=== PATIENT | male | born 1985 | race Caucasian/White ===

== ENCOUNTER 2019-12-26 00:51 | Emergency (ER) | payer BC ==
[2019-12-26] MEDS ORDERED: Ketorolac 10 MG Tab PO ONE (00:52)
[2019-12-26] MEDS ORDERED: Cyclobenzaprine 10 MG Tab PO ONE (00:52)
[2019-12-26] MEDS ORDERED: Ketorolac 60 MG/2 ML SDV IM ONE (01:14)
[2019-12-26] MEDS ORDERED: Alum Hydrox/Mag Hydrox/Simeth 30 ML, Lidocaine 2% 15 ML PO ONE ×2 (01:15)
--- NOTE | 2019-12-26 01:21 | EDM.PDOC ---
ED HPI GENERAL MEDICAL PROBLEM - General Chief Complaint: General Stated Complaint: neck pain Time Seen by Provider: 12/26/19 01:10 Source of Information: Reports: Patient History Limitations: Reports: No Limitations - History of Present Illness INITIAL COMMENTS - FREE TEXT/NARRATIVE: Patient to the emergency department complaining of ate some spicy greasy type foods tonight, went to bed around 11 PM and woke up with coughing and also advised with the frequent coughing developed pain in the left side of his neck that radiated into the posterior part of his head. Denies any real headache. Denies any change in vision denies any ear, nose, throat symptoms. The patient denies any chest pain or shortness of breath denies any palpitations irregular heartbeat denies any calf pain redness or swelling. He denies any abdominal pain other than he has this epigastric heartburn feeling from the food that he ate earlier. He has had nausea no vomiting diarrhea no constipation no fever no chills Onset: Today Duration: Hour(s): (3 hours) Location: Reports: Other (left side f neck and back of head area) Quality: Reports: Ache Severity: Moderate Improves with: Reports: None Worsens with: Reports: None Associated Symptoms: Reports: Nausea/Vomiting (no vomiting) Treatments DEAN OF EDUCATION: Reports: Other (see below) (tums and milk) Left Neck Pain Score (Numeric/FACES): 10 - Related Data Allergies Allergy/AdvReac Type Severity Reaction Status Date / Time No Known Allergies Allergy Verified 12/26/19 00:56 Home Meds: Home Meds Esomeprazole [NexIUM] 40 mg PO DAILY 12/26/19 [History] Ketorolac [Toradol] 10 mg PO TID PRN 5 Days #15 tab 12/26/19 [Rx] Losartan [Cozaar] 50 mg PO DAILY 12/26/19 [History] hydroCHLOROthiazide [Hydrochlorothiazide] 25 mg PO DAILY 12/26/19 [History] methocarbamoL [Robaxin] 500 mg PO TID 10 Days #30 tab 12/26/19 [Rx] Past Medical History Cardiovascular History: Reports: Hypertension Gastrointestinal History: Reports: GERD - Past Surgical History HEENT Surgical History: Reports: Other (See Below) Other HEENT Surgeries/Procedures: wisdom teeth removal Social & Family History - Family History Family Medical History: Noncontributory - Tobacco Use Smoking Status *Q: Never Smoker - Recreational Drug Use Recreational Drug Use: No - Living Situation & Occupation Living situation: Reports: with Family ED ROS GENERAL - Review of Systems Review Of Systems: See Below Constitutional: Reports: No Symptoms. Denies: Fever, Chills HEENT: Reports: No Symptoms. Denies: Ear Pain, Nose Pain, Throat Pain Respiratory: Reports: No Symptoms. Denies: Shortness of Breath Cardiovascular: Reports: No Symptoms. Denies: Chest Pain, Palpitations GI/Abdominal: Reports: Abdominal Pain (Epigastric), Nausea. Denies: Diarrhea, Melena, Vomiting Musculoskeletal: Reports: No Symptoms, Neck Pain. Denies: Back Pain Skin: Reports: No Symptoms. Denies: Rash, Erythema Neurological: Reports: No Symptoms. Denies: Confusion, Dizziness, Headache, Numbness, Syncope, Tingling, Trouble Speaking, Difficulty Walking, Weakness, Change in Speech, Gait Disturbance Psychiatric: Reports: No Symptoms ED EXAM, GENERAL - Physical Exam Exam: See Below Exam Limited By: No Limitations General Appearance: Alert, WD/WN, No Apparent Distress Ears: Normal External Exam, Normal Canal, Hearing Grossly Normal, Normal TMs Ear Exam: Bilateral Ear: Auricle Normal, Canal Normal, TM normal Nose: Normal Inspection, Normal Mucosa Throat/Mouth: Normal Inspection, Normal Lips, Normal Teeth, Normal Oropharynx, Normal Voice, No Airway Compromise Head: Atraumatic, Normocephalic Neck: Normal Inspection, Supple, Full Range of Motion, Tender Lateral (Low site with palpation). No: Limited Range of Motion, Lymphadenopathy (L), Lymphadenopathy (R) Respiratory/Chest: No Respiratory Distress, Lungs Clear, Normal Breath Sounds, No Accessory Muscle Use, Chest Non-Tender Cardiovascular: Normal Peripheral Pulses, Regular Rate, Rhythm, No Murmur Peripheral Pulses: 2+: Radial (L), Radial (R) GI/Abdominal: Soft, Non-Tender (No epigastric tenderness with palpation), No Distention Back Exam: Normal Inspection, Full Range of Motion Extremities: Normal Inspection, Normal Range of Motion, Non-Tender, Normal Capillary Refill Neurological: Alert, Oriented, Normal Cognition, Normal Gait, No Motor/Sensory Deficits Psychiatric: Normal Affect, Normal Mood Skin Exam: Warm, Dry, Intact, Normal Color Course - Vital Signs Text/Narrative:: The patient was evaluated in the emergency department, the patient was given a GI cocktail which seemed to help his gastric symptoms as well as he was given Toradol 60 mg IM which has also seemed to help his cervical spine pain/spasm. The patient will be discharged with Flexeril 10 mg 3 times daily for today and a prescription for Robaxin 500 mg 3 times daily will be sent to the pharmacy to be picked up on Friday. The patient will also be given Toradol 10 mg 3 times daily as needed. The patient is advised to use his omeprazole as prescribed and avoid any spicy or greasy foods. He is also advised to stop eating late at night. The patient is advised to return to the emergency department sooner if worse or any problems. He is also advised to establish a patient provider relationship with 1 of the local providers as he has moved to [place] last week. Last Recorded V/S: Last Vital Signs Temp 36.2 C 12/26/19 00:53 Pulse 65 12/26/19 00:53 Resp 18 12/26/19 00:53 BP 159/98 H 12/26/19 00:53 Pulse Ox 97 12/26/19 00:53 - Orders/Labs/Meds Meds: Medications Discontinued Medications Generic Name Dose Route Start Last Admin Trade Name Freq PRN Reason Stop Dose Admin Al Hydroxide/Mg Hydroxide 30 0 ml 12/26/19 01:15 12/26/19 01:19 ml/ Lidocaine HCl 15 ml PO 12/26/19 01:16 45 ml ONETIME ONE Administration Cyclobenzaprine HCl 1 packet 12/26/19 01:40 Take Home: Cyclobenzaprine 10 Mg, 4 Tab Pack PO 12/26/19 01:41 ONETIME ONE Ketorolac Tromethamine 60 mg 12/26/19 01:14 12/26/19 01:21 Toradol IM 12/26/19 01:15 60 mg ONETIME ONE Administration Ketorolac Tromethamine 1 packet 12/26/19 01:39 Take Home: Ketorolac 10 Mg, 4 Tab Pack PO 12/26/19 01:40 ONETIME ONE Departure - Departure Time of Disposition: 01:39 Disposition: Home, Self-Care 01 Condition: Good Clinical Impression: GERD (gastroesophageal reflux disease), Neck muscle strain - Discharge Information *PRESCRIPTION DRUG MONITORING PROGRAM REVIEWED*: Not Applicable *COPY OF PRESCRIPTION DRUG MONITORING REPORT IN PATIENT HARMEET: Not Applicable Prescriptions: Ketorolac [Toradol] 10 mg PO TID PRN 5 Days #15 tab PRN Reason: Pain (Moderate 4-6) methocarbamoL [Robaxin] 500 mg PO TID 10 Days #30 tab Instructions: Cervical Sprain, [id number], Gastroesophageal Reflux Disease, Adult, [id number] Referrals: PCP,None [Primary Care Provider] - Forms: ED Department Discharge Additional Instructions: Rest warm moist heat off and on no spicy or greasy foods return to the ED sooner if worse or problems Sepsis Event Note - Evaluation Sepsis Screening Result: No Definite Risk - Focused Exam Vital Signs: Vital Signs Temp Pulse Resp BP Pulse Ox 12/26/19 00:53 36.2 C 65 18 159/98 H 97 Date Exam was Performed: 12/26/19 Time Exam was Performed: 01:44 - Problem List & Annotations (1) GERD (gastroesophageal reflux disease) SNOMED Code(s): 363926954 Code(s): K21.9 - GASTRO-ESOPHAGEAL REFLUX DISEASE WITHOUT ESOPHAGITIS Status: Acute Priority: Medium Current Visit: Yes (2) Neck muscle strain SNOMED Code(s): 548669235 Code(s): S16.1XXA - STRAIN OF MUSCLE, FASCIA AND TENDON AT NECK LEVEL, INIT Status: Acute Priority: Medium Current Visit: Yes Qualifiers: Encounter type: initial encounter Qualified Code(s): S16.1XXA - Strain of muscle, fascia and tendon at neck level, initial encounter - Problem List Review Problem List Initiated/Reviewed/Updated: Yes - Assessment/Plan Plan: The patient's past medical history, surgical history, past family medical history social history is been reviewed see the nursing notes for details Treatment plan as above
[2019-12-26] MEDS ORDERED: Take Home: Ketorolac 10 MG Tab, 4 Tab Pack PO ONE (01:39)
[2019-12-26] MEDS ORDERED: Take Home: Cyclobenzaprine 10 MG Tab, 4 Tab Pack PO ONE (01:40)
== END 2019-12-26 01:51 | disposition home or self-care (01) ==
LOC: CC.ED 00:51
DX: S16.1XXA Strain of muscle, fascia and tendon at neck level, initial encounter (principal); K21.9 Gastro-esophageal reflux disease without esophagitis; X58.XXXA Exposure to other specified factors, initial encounter
CPT/HCPCS: 96372; 99283; A9270-GY; J1885

== ENCOUNTER 2021-06-30 13:45 | Emergency (ER) | payer BC ==
--- NOTE | 2021-06-30 14:22 | EDM.PDOC ---
ED HPI GENERAL MEDICAL PROBLEM - General Chief Complaint: Cardiovascular Problem Stated Complaint: "my blood pressure is high" Time Seen by Provider: 06/30/21 14:15 Source of Information: Reports: Patient History Limitations: Reports: No Limitations - History of Present Illness INITIAL COMMENTS - FREE TEXT/NARRATIVE: Ruperto is a 35 year old male who presents to ER with complaints of feeling "off" and noted high blood pressure at home. Had syncopal episode at work yesterday. "we were messing around with each other, I put my hands up in the air and then next thing I knew I woke up on the floor". Was told that passed out, was lowered to the floor and was snoring. When awoke, got up and felt fine. Went home from work and had no concerns last night. Horner off when getting up this am, checked his blood pressure and was high at 170s/110s. Denies chest pain or shortness of breath at present. Does admit that gets winded easily with exertion. No diaphoresis. No nausea or vomiting. Does get edema in his legs at times, relates to having for years due to ankle injuries sustained when young while playing soccer. Did take his Losartan this am, hasn't noted any improve ment. Onset: Gradual Duration: Hour(s):, Waxing/Waning Location: Reports: Head, Chest Associated Symptoms: Reports: Other (dyspnea with exertion). Denies: Confusion, Chest Pain, Cough, Fever/Chills, Headaches, Loss of Appetite, Nausea/Vomiting, Shortness of Breath - Related Data Allergies Allergy/AdvReac Type Severity Reaction Status Date / Time No Known Allergies Allergy Verified 06/30/21 13:46 Home Meds: Home Meds Esomeprazole [NexIUM] 40 mg PO DAILY PRN 12/26/19 [History] Losartan [Cozaar] 50 mg PO BID 12/26/19 [History] Albuterol Sulfate [Albuterol Sulfate Hfa] 2 puff ASDIRECTED PRN 06/30/21 [History] Pantoprazole Sodium [Protonix] 40 mg PO DAILY 06/30/21 [History] Past Medical History Cardiovascular History: Reports: Hypertension Gastrointestinal History: Reports: GERD - Past Surgical History HEENT Surgical History: Reports: Other (See Below) Other HEENT Surgeries/Procedures: wisdom teeth removal Social & Family History - Family History Family Medical History: No Pertinent Family History - Tobacco Use Tobacco Use Status *Q: Unknown Ever Used Tobacco - Living Situation & Occupation Living situation: Reports: with Family ED ROS GENERAL - Review of Systems Review Of Systems: See Below Constitutional: Denies: Fever, Chills, Malaise, Weakness, Fatigue, Decreased Appetite HEENT: Denies: Ear Pain, Rhinitis, Sinus Problem, Throat Pain, Vertigo, Vision Change Respiratory: Denies: Shortness of Breath, Cough Cardiovascular: Reports: Dyspnea on Exertion, Edema. Denies: Chest Pain, Lightheadedness Endocrine: Denies: Fatigue GI/Abdominal: Denies: Abdominal Pain, Nausea, Vomiting : Reports: No Symptoms Musculoskeletal: Reports: No Symptoms Skin: Reports: No Symptoms Neurological: Denies: Dizziness, Headache ED EXAM, GENERAL - Physical Exam Exam: See Below Exam Limited By: No Limitations General Appearance: Alert, WD/WN, No Apparent Distress Ears: Normal External Exam, Normal TMs Nose: Normal Inspection, Normal Mucosa, No Blood Throat/Mouth: Normal Inspection, Normal Oropharynx Head: Normocephalic Neck: Normal Inspection, Supple, Non-Tender Respiratory/Chest: No Respiratory Distress, Lungs Clear, Normal Breath Sounds Cardiovascular: Regular Rate, Rhythm, No Edema GI/Abdominal: Normal Bowel Sounds, Soft, Non-Tender Extremities: Normal Inspection, No Pedal Edema Neurological: Alert, Oriented Skin Exam: Warm, Dry Course - Vital Signs Last Recorded V/S: Last Vital Signs Temp 98.2 F 06/30/21 13:49 Pulse 78 06/30/21 15:50 Resp 16 06/30/21 15:50 BP 164/110 H 06/30/21 15:50 Pulse Ox 98 06/30/21 15:50 - Orders/Labs/Meds Orders: Active Orders 24 hr Category Date Time Status Chest 2V [CR] Stat Exams 06/30/21 14:01 Taken Head wo Cont [CT] Stat Exams 06/30/21 14:01 Taken cloNIDine [Catapres] Med 06/30/21 15:00 Active 0.1 mg PO DAILY hydroCHLOROthiazide Med 06/30/21 16:12 Once 25 mg PO ONETIME ONE Medication Orders Clonidine HCl (Clonidine 0.1 Mg Tab) 0.1 mg PO DAILY JOSE Last Admin: 06/30/21 15:05 Dose: 0.1 mg Documented by: HIRAM Labs: Laboratory Tests 06/30/21 06/30/21 06/30/21 Range/Units 14:30 14:33 14:33 WBC 7.6 (4.0-11.0) 10^3/uL RBC 5.44 (4.50-6.00) x10^6/uL Hgb 16.2 (14.0-18.0) g/dL Hct 45.7 (42.0-52.0) % MCV 84.0 (83.0-97.0) fL MCH 29.8 (27.0-32.0) pg MCHC 35.4 (32.0-36.0) g/dL RDW Coeff of Roxy 12.1 (11.0-15.0) % Plt Count 231 (150-400) 10^3/uL Immature Gran % (Auto) 0.3 (0.0-4.9) % Neut % (Auto) 53.9 (41-71) % Lymph % (Auto) 35.7 (24-44) % [place] % (Auto) 7.8 (0-10) % Eos % (Auto) 1.8 (0-6) % Baso % (Auto) 0.5 (0-1) % Neut # (Auto) 4.08 (1.80-8.00) x10^3/uL Lymph # (Auto) 2.70 (0.60-5.00) 10^3/uL [place] # (Auto) 0.59 (0.00-1.50) 10^3/uL Eos # (Auto) 0.14 (0.00-1.50) 10^3/uL Baso # (Auto) 0.04 (0.00-0.50) 10^3/uL Immature Gran # (Auto) 0.02 (0.00-0.49) 10^3/uL D-Dimer, Quantitative 0.34 (0.00-0.50) Sodium 142 (136-145) mEq/L Potassium 4.3 (3.5-5.0) mEq/L Chloride 102 (98-106) mEq/L Carbon Dioxide 30 (21-32) mmol/L BUN 12 (7-18) mg/dL Creatinine 1.1 (0.7-1.3) mg/dL Est Cr Clr Drug Dosing 92.41 mL/min Estimated GFR (MDRD) > 60 (>=60) mL/min Glucose 100 H (75-99) mg/dL Calcium 10.0 (8.4-10.1) mg/dL Total Bilirubin 0.5 (0.0-1.0) mg/dL AST 38 H (15-37) U/L ALT 91 H (12-78) U/L Alkaline Phosphatase 75 (46-116) U/L Troponin I High Sens 23.0 (<=76) pg/mL C-Reactive Protein < 0.2 L (0.2-0.8) mg/dL Total Protein 8.6 H (6.4-8.2) g/dL Albumin 4.7 (3.4-5.0) g/dL Urine Color (YELLOW) Urine Appearance (CLEAR) Urine pH (4.5-8.0) Ur Specific [place] (1.003-1.020) Urine Protein (NEGATIVE) mg/dL Urine Glucose (UA) (NEGATIVE) mg/dL Urine Ketones (NEGATIVE) mg/dL Urine Occult Blood (NEGATIVE) Urine Nitrite (NEGATIVE) Urine Bilirubin (NEGATIVE) Urine Urobilinogen (0.2-1.0) EU/dL Ur Leukocyte Esterase (NEGATIVE) Urine RBC (0-5) /HPF Urine WBC (0-5) /HPF 06/30/ Range/Units 14:39 WBC (4.0-11.0) 10^3/uL RBC (4.50-6.00) x10^6/uL Hgb (14.0-18.0) g/dL Hct (42.0-52.0) % MCV (83.0-97.0) fL MCH (27.0-32.0) pg MCHC (32.0-36.0) g/dL RDW Coeff of Roxy (11.0-15.0) % Plt Count (150-400) 10^3/uL Immature Gran % (Auto) (0.0-4.9) % Neut % (Auto) (41-71) % Lymph % (Auto) (24-44) % [place] % (Auto) (0-10) % Eos % (Auto) (0-6) % Baso % (Auto) (0-1) % Neut # (Auto) (1.80-8.00) x10^3/uL Lymph # (Auto) (0.60-5.00) 10^3/uL [place] # (Auto) (0.00-1.50) 10^3/uL Eos # (Auto) (0.00-1.50) 10^3/uL Baso # (Auto) (0.00-0.50) 10^3/uL Immature Gran # (Auto) (0.00-0.49) 10^3/uL D-Dimer, Quantitative (0.00-0.50) Sodium (136-145) mEq/L Potassium (3.5-5.0) mEq/L Chloride (98-106) mEq/L Carbon Dioxide (21-32) mmol/L BUN (7-18) mg/dL Creatinine (0.7-1.3) mg/dL Est Cr Clr Drug Dosing mL/min Estimated GFR (MDRD) (>=60) mL/min Glucose (75-99) mg/dL Calcium (8.4-10.1) mg/dL Total Bilirubin (0.0-1.0) mg/dL AST (15-37) U/L ALT (12-78) U/L Alkaline Phosphatase (46-116) U/L Troponin I High Sens (<=76) pg/mL C-Reactive Protein (0.2-0.8) mg/dL Total Protein (6.4-8.2) g/dL Albumin (3.4-5.0) g/dL Urine Color Yellow (YELLOW) Urine Appearance Clear (CLEAR) Urine pH 7.0 (4.5-8.0) Ur Specific [place] 1.020 (1.003-1.020) Urine Protein Negative (NEGATIVE) mg/dL Urine Glucose (UA) Negative (NEGATIVE) mg/dL Urine Ketones Negative (NEGATIVE) mg/dL Urine Occult Blood Negative (NEGATIVE) Urine Nitrite Negative (NEGATIVE) Urine Bilirubin Negative (NEGATIVE) Urine Urobilinogen 0.2 (0.2-1.0) EU/dL Ur Leukocyte Esterase Negative (NEGATIVE) Urine RBC Not seen (0-5) /HPF Urine WBC Not seen (0-5) /HPF Meds: Medications Generic Name Dose Route Start Last Admin Trade Name Freq PRN Reason Stop Dose Admin Clonidine HCl 0.1 mg 06/30/21 15:00 06/30/21 15:05 Clonidine 0.1 Mg Tab PO 0.1 mg DAILY [facility] Administration - Re-Assessments/Exams Free Text/Narrative Re-Assessment/Exam: 06/30/21 16:13 have not seen much improvement with Clonidine. Will give HCTZ. patient not wanting to sit here to monitor as states can monitor at home. Will add HCTZ to his regimen as he has had high readings with last 3 clinic visits as well. states will check blood pressure again at home in 2 hours. Readings at home were very similar to ours here. Continue Losartan. Will contact us with recheck blood pressures. Patient is feeling good at present. Labs and CT all normal. EKG normal. Departure - Departure Time of Disposition: 16:16 Disposition: Home, Self-Care 01 Condition: Fair Clinical Impression: Hypertensive urgency, Syncope Instructions: Syncope, [id number], Hypertension, Adult, [id number] Forms: ED Department Discharge Additional Instructions: 1. Rest 2. push fluids 3. Avoid excessive caffeine, salt, alcohol or nicotine. 4. Take HCTZ in am with Losartan BID 5. Report blood pressures tonight and in AM 6. Will follow up with further testing as available. Sepsis Event Note (ED) - Evaluation Sepsis Screening Result: No Definite Risk - Focused Exam Vital Signs: Vital Signs Temp Pulse Resp BP BP Pulse Ox 06/30/21 15:50 78 16 164/110 H 98 06/30/21 15:05 175/110 H 06/30/21 14:54 175/110 H 06/30/21 14:15 166/119 H 06/30/21 13:49 98.2 F 84 16 179/112 H 96 - My Orders Last 24 Hours: My Active Orders 06/30/21 14:01 Chest 2V [CR] Stat Head wo Cont [CT] Stat 06/30/21 15:00 cloNIDine [Catapres] 0.1 mg PO DAILY 06/30/21 16:12 hydroCHLOROthiazide 25 mg PO ONETIME ONE - Assessment/Plan Last 24 Hours: My Active Orders 06/30/21 14:01 Chest 2V [CR] Stat Head wo Cont [CT] Stat 06/30/21 15:00 cloNIDine [Catapres] 0.1 mg PO DAILY 06/30/21 16:12 hydroCHLOROthiazide 25 mg PO ONETIME ONE
[2021-06-30 14:46] LABS: CHLORIDE,CL 102 mEq/L (98-106); SODIUM,NA 142 mEq/L (136-145)
[2021-06-30] MEDS ORDERED: cloNIDine 0.1 MG Tab PO SCH (15:00)
[2021-06-30] MEDS ORDERED: Hydrochlorothiazide 25 MG Tab PO ONE (16:12)
[2021-06-30] MEDS ORDERED: Hydrochlorothiazide 25 MG Tab PO SCH (16:30)
== END 2021-06-30 16:35 | disposition home or self-care (01) ==
LOC: CC.ED 13:45
DX: I16.0 Hypertensive urgency (principal); I10 Essential (primary) hypertension; R55 Syncope and collapse; K21.9 Gastro-esophageal reflux disease without esophagitis; Z79.899 Other long term (current) drug therapy
CPT/HCPCS: 36415; 70450; 71046; 80053; 81001; 84484; 85025; 85379; 86140; 93005; 99284-25; A9270-GY